=== PATIENT | male | born 1955 | race Caucasian/White ===

== ENCOUNTER → 2016-11-17 | Outpatient (CLI) | payer MEDICARE, BC ==
--- NOTE | 2016-11-17 17:03 | KCIC ---
MRI Lumbar Spine without contrast History: Osteoarthritis, left-sided low back pain Technique: Multiplanar, multi sequential noncontrast MR imaging was performed of the lumbar spine. Contrast: None Comparison: None available Findings: There is advanced degenerative disc disease L3-4 and L4-5, to lesser degree at L5-S1 and L2-3. There is grade 1 anterior spondylolisthesis at L2-3 and L3-4, negligible posterior subluxation L4 relative L5. There is straightening of the lumbar spine. There is degenerative endplate change L4-5. There is L3-4 endplate edema, no fluid in the intervertebral disc space. Conus terminates at L1. Vertebral body stature is adequate. Linear fat signal intensity in the more central thecal sac is compatible with fatty filum terminale. There is mild levoscoliosis. There is mild left lateral subluxation of L3 relative to L4. L1-L2: Spinal canal and neural foramina are adequate. L2-L3: There is moderate to severe buckling of the ligamentum flavum and moderate facet hypertrophic change. There is mild partial uncovering of the posterior aspect of the disc due to spondylolisthesis with minimal superimposed bulge. There is moderate spinal stenosis, lateral recess stenosis bilaterally. There is left posterolateral annular tear. There is [id number] left and mild right neural foramina compromise. L3-L4: There has been right laminectomy. There is moderate to severe facet degenerative change. There is a broad posterior bulge/protrusion on the order of 1.1 cm CC by 1 cm AP by approximately 1.9 cm transverse. Combination of findings results in severe spinal stenosis with near complete effacement of subarachnoid space, lateral recess stenosis bilaterally. There is moderate left and severe right neural foramina compromise. L4-L5: There has been posterior decompression. There is posterior disc osteophyte complex. Spinal canal is overall adequate. There is moderate to severe narrowing of the left neural foramen by disc osteophyte complex and facet with contact exiting left L4 nerve root. There is [id number] narrowing of the right neural foramen. L5-S1: There has been posterior decompression. Spinal canal is adequate. There is prominence of epidural fat in the lateral recesses, preserved central subarachnoid space. There is minimal disc osteophyte complex. There is mild to moderate neural foramina compromise greater on the left. Impression: 1. There is severe spinal stenosis L3-4, moderate spinal stenosis at L2-3. There is grade 1 anterior spondylolisthesis at these levels. 2. There is advanced degenerative disc disease L3-4 and L4-5 and to lesser degree at L5-S1 and L2-3. L3-4 endplate edema is likely reactive/degenerative in etiology. 3. There is multilevel lumbar neural foramina compromise as stated greatest bilaterally at L3-4 and on the left at L4-5, to lesser degree on the right at L4-5, bilaterally at L5-S1, and on the left at L2-3. Electronically signed by: Ever Carbone MD (11/17/2016 5:00 PM) [email or web address]
== END | disposition home or self-care (01) ==
LOC: KCIC MRI 15:52
PROVIDERS: ATTEND Physician Assistant Medical
DX: M47.816 Spondylosis without myelopathy or radiculopathy, lumbar region (principal); M51.36 Other intervertebral disc degeneration, lumbar region; M48.06 Spinal stenosis, lumbar region; M43.16 Spondylolisthesis, lumbar region
CPT/HCPCS: 72148

== ENCOUNTER → 2017-01-03 | Outpatient (CLI) | payer MEDICARE, BC ==
--- NOTE | 2017-01-03 16:08 | KCIC ---
LUMBAR SPINE MIN 4V History: Lumbar spondylolisthesis Comparison: November 17, 2016 MRI lumbar spine exam Findings: 4 views of the lumbar spine to include neutral, flexion, and extension lateral radiographs are submitted. Lumbar vertebral body stature is unchanged. There is again grade 1 anterior spondylolisthesis L3-4 similar with flexion and extension. There is grade 1 anterior spondylolisthesis at L2-3 slightly accentuated with flexion and decreased with extension. There is mild left lateral subluxation of L3 relative to L4. There is very mild right lateral subluxation L4 relative L5. There is mild lumbar levoscoliosis. There is atherosclerotic calcification of the abdominal aorta. There is advanced degenerative disc disease L3-4 and L4-5, to lesser degree at L2-3 and L5-S1. Impression: 1. There is grade 1 anterior spondylolisthesis at L3-4 similar with flexion and extension. Grade 1 anterior spondylolisthesis at L2-3 is slightly accentuated with flexion and decreases with extension. 2. There is lumbar levoscoliosis. There is abnormal lateral alignment as stated. 3. There is advanced degenerative disc disease L3-4 and L4-5, to lesser degree at other levels. Electronically signed by: Ever Carbone MD (01/03/2017 4:05 PM) [email or web address]
== END | disposition home or self-care (01) ==
LOC: KCIC 14:06
PROVIDERS: ATTEND Nurse Practitioner Adult Health
DX: M43.16 Spondylolisthesis, lumbar region (principal); M51.36 Other intervertebral disc degeneration, lumbar region; M41.86 Other forms of scoliosis, lumbar region
CPT/HCPCS: 72110

== ENCOUNTER → 2017-03-08 | Outpatient (CLI) | payer MEDICARE, BC | END | disposition home or self-care (01) | LOC: KCIC 11:33 | DX: M54.16 Radiculopathy, lumbar region (principal); M43.16 Spondylolisthesis, lumbar region; M41.86 Other forms of scoliosis, lumbar region; M47.896 Other spondylosis, lumbar region; I70.0 Atherosclerosis of aorta | CPT/HCPCS: 72100 ==

== ENCOUNTER → 2017-04-20 | Outpatient (CLI) | payer MEDICARE, BC | END | disposition home or self-care (01) | LOC: KCIC MRI 14:25 | DX: S83.242A Other tear of medial meniscus, current injury, left knee, initial encounter (principal); S83.282A Other tear of lateral meniscus, current injury, left knee, initial encounter; M17.12 Unilateral primary osteoarthritis, left knee; X58.XXXA Exposure to other specified factors, initial encounter; Y93.89 Activity, other specified; Y92.89 Other specified places as the place of occurrence of the external cause; Y99.8 Other external cause status | CPT/HCPCS: 73721 ==

== ENCOUNTER → 2017-04-28 | Outpatient (CLI) | payer MEDICARE, BC | END | disposition home or self-care (01) | LOC: KCIC 09:40 | DX: M43.16 Spondylolisthesis, lumbar region (principal); M41.86 Other forms of scoliosis, lumbar region; I70.0 Atherosclerosis of aorta; Z98.1 Arthrodesis status | CPT/HCPCS: 72100 ==

== ENCOUNTER → 2017-12-26 | Outpatient (CLI) | payer MEDICARE, BC ==
--- NOTE | 2017-12-26 12:02 | KCIC ---
Two-view right hip dated 12/26/2017. No comparison available. Clinical data indication: Pain. FINDINGS: 2 views right hip show normal bony alignment. No displaced fracture. No acute osseous or articular abnormality. Mild hypertrophic change of the right hip joint with chondrocalcinosis. IMPRESSION: No acute radiographic abnormality. Mild degenerative arthrosis and chondrocalcinosis at the right hip. Electronically signed by: Ian Prasad MD (12/26/2017 11:58 AM) [email or web address]
== END | disposition home or self-care (01) ==
LOC: KCIC 11:01
PROVIDERS: ATTEND Family Medicine
DX: M16.11 Unilateral primary osteoarthritis, right hip (principal); M11.251 Other chondrocalcinosis, right hip
CPT/HCPCS: 73502

== ENCOUNTER → 2018-03-22 | Outpatient (CLI) | payer MEDICARE, BC ==
--- NOTE | 2018-03-22 13:07 | KCIC ---
EXAM: Lumbar spine MRI without contrast. HISTORY: Spinal stenosis. Neurogenic claudication. TECHNIQUE: Multiplanar, multisequence magnetic resonance imaging of the lumbar spine was performed without contrast. COMPARISON: 11/17/2016 FINDINGS: There is instrumented posterior spinal fusion with laminectomy decompression and disc space fusion device placement at L3-L4. There is grade 1 anterolisthesis measuring 5 mm at this level. There is grade 1 anterolisthesis measuring 4 mm at L2-L3. There is 3 mm retrolisthesis of L4 on L5 and 2 mm retrolisthesis of L5 on S1. There is lumbar levoscoliosis centered at L2. There is degenerative endplate remodeling with disc space narrowing, osteophytosis and Schmorl's node formation primarily at L2-L5. The degenerative changes are most significant along the right aspects of L2-L3 and L3-L4 and left aspect of L5-S1. This corresponds with the levels of maximum scoliotic curvature. There is a tiny amount of fluid within the disc space at L3-L4. The conus terminates at T12-L1. There is a suspected left pelvic kidney or inferiorly positioned left kidney, an incidental finding. There is scarring and postoperative susceptibility effect within the posterior back soft tissues. At L1-L2, there is a disc bulge and endplate remodeling. There is mild bilateral facet arthropathy. There is hypertrophy of the ligamentum flavum. There is a right facet joint synovial cyst projecting into the right posterior central canal, measuring 1.8 cm craniocaudally by 1.1 cm transversely by 1.0 cm anteroposteriorly. This contributes to deviation of the traversing nerve roots and moderate central canal stenosis at this level. There is also mild left foraminal stenosis at this level. At L2-L3, there is a right paracentral to lateral recess disc protrusion with superior extrusion superimposed on a disc bulge and right paracentral and left foraminal annular tears. The extruded disc material extends 15 mm superior to the disc space and measures 10 mm transversely by 8 mm anteroposteriorly. The combination of these findings and right lateral predominant endplate osteophytosis, severe bilateral facet arthropathy, hypertrophy of the ligamentum flavum and grade 1 anterolisthesis results in moderate to severe right foraminal stenosis with effacement of the exiting right L2 nerve root. There is mild left foraminal stenosis and severe central canal stenosis. At L3-L4, there is instrumented fusion and laminectomy decompression. There is a broad-based posterior central superior disc extrusion extending 7 and superior to the disc space. This is superimposed on a diffuse disc bulge and endplate osteophytosis. There is severe right facet arthropathy. There is grade 1 anterolisthesis. There is mild left foraminal stenosis with abutment of the exiting left L3 nerve root. At L4-L5, there is a right paracentral disc protrusion and annular tear superimposed on a left lateral predominant disc bulge and endplate osteophytosis. There is mild left facet arthropathy. There are laminectomy changes. There is moderate to severe left foraminal stenosis with effacement of the exiting left L4 nerve root. At L5-S1, there is a broad-based posterior central disc protrusion and annular tear superimposed on a disc bulge and endplate remodeling. There is mild facet arthropathy. There are laminectomy changes. There is mild right foraminal stenosis. There is epidural lipomatosis contributing to moderate narrowing of the thecal sac despite laminectomy changes. IMPRESSION: 1. Instrumented posterior spinal fusion and disc space fusion device placement at L3-L4 and laminectomy decompression at L3-L5. The instrumentation is new compared to the prior study. There has been interval decrease in a previously demonstrated disc protrusion and extrusion at this level. 2. Multilevel degenerative change throughout the lumbar spine, described in detail above. This results in mild left foraminal and moderate central canal stenosis at L1-L2, moderate to severe right foraminal and mild left foraminal stenosis and severe central canal stenosis at L2-L3, mild left foraminal stenosis at L3-L4, moderate to severe left foraminal stenosis at L4-L5, and mild right foraminal stenosis at L5-S1. The findings are most significantly increased at L2-L3 compared to the prior study, including a new disc extrusion at this level. 3. Lumbar scoliosis and multilevel listhesis, described above. 4. Large right facet joint synovial cyst contributing to deviation of the nerve roots and central canal stenosis at L1-L2. This is new compared to the prior study. 5. Electronically signed by: Sangita Tran MD (03/22/2018 1:02 PM) [place] [id number]
== END | disposition home or self-care (01) ==
LOC: KCIC MRI 11:59
PROVIDERS: ATTEND Neurological Surgery
DX: M48.061 Spinal stenosis, lumbar region without neurogenic claudication (principal); M48.07 Spinal stenosis, lumbosacral region; M71.38 Other bursal cyst, other site; M51.26 Other intervertebral disc displacement, lumbar region; M51.27 Other intervertebral disc displacement, lumbosacral region; M12.88 Other specific arthropathies, not elsewhere classified, other specified site; M51.46 Schmorl's nodes, lumbar region; M47.896 Other spondylosis, lumbar region; M41.86 Other forms of scoliosis, lumbar region
CPT/HCPCS: 72148

== ENCOUNTER → 2018-07-05 | Outpatient (CLI) | payer MEDICARE, BC ==
--- NOTE | 2018-07-05 10:49 | KCIC ---
Two-view lumbar spine dated 07/05/2018. Comparison made to 04/28/2017. CLINICAL INDICATION: Postop fusion. FINDINGS: AP and lateral views obtained. There is been multilevel laminectomy with posterior lateral fusion from T12 to L4. Posterior fusion rods and transpedicular screws in place. No evidence of hardware migration or radiolucency along the screw margins. There is slight anterolisthesis of L3 on L4 with in a cage fusion device in place, unchanged. There is near complete bony fusion at the level the disc. There is been interval placement of fusion cage at the L2-L3 level. Multilevel endplate hypertrophic changes. Severe disc space narrowing at L4-L5 and L5-S1. Arthrosis lower lumbar apophyseal joints. IMPRESSION: 1. Status post fusion from T12 to L4 with no apparent complication. 2. Multilevel spondylosis. Electronically signed by: Ian Prasad MD (07/05/2018 10:45 AM) [email or web address]
== END | disposition home or self-care (01) ==
LOC: KCIC 09:37
PROVIDERS: ATTEND Neurological Surgery
DX: M47.816 Spondylosis without myelopathy or radiculopathy, lumbar region (principal); M48.07 Spinal stenosis, lumbosacral region; M43.16 Spondylolisthesis, lumbar region
CPT/HCPCS: 72100

== ENCOUNTER → 2021-03-31 | Outpatient (CLI) | payer MEDICARE, BC ==
--- NOTE | 2021-03-31 11:15 | RAD ---
EXAM: Chest, 2 views. HISTORY: Bronchopneumonia. COMPARISON: 10/23/2020 FINDINGS: 2 views of the chest are obtained. There is right upper and left lower lobe predominant mul tifocal infiltrate. There is a suspected trace right pleural effusion or right basilar pleural thicke genny. There is no consolidation. There is no pneumothorax. The heart is normal in size. IMPRESSION: Stable multifocal interstitial infiltrate and right basilar pleural thickening or trace p leural effusion. Electronically signed by: Sangita Tran MD (03/31/2021 11:13 AM) [id number]
== END ==
LOC: RAD 10:36
PROVIDERS: ATTEND Physician Assistant Medical
DX: J84.89 Other specified interstitial pulmonary diseases (principal); J92.9 Pleural plaque without asbestos; J18.0 Bronchopneumonia, unspecified organism
CPT/HCPCS: 71046